=== PATIENT | male | born 1940 | race Caucasian/White ===

== ENCOUNTER → 2017-04-05 10:55 | Outpatient (CLI) | payer MEDICARE, OTHER ==
[2015-04-26 15:03] VITALS: BMI 21.8
[~2017-04-05 10:55] MED LIST: BAYER CHEWABLE81 MG PO; COREG6.25 MG PO; DIFLUCAN SUS40 MG/ML PO; DYAZIDE 37.5/251 CAP PO; ELIQUIS5 MG PO; HYDROCODONE-APA1 TAB PO; LISINOPRIL2.5 MG PO; MACROBID100 MG PO; OMNICEF300 MG PO; PACERONE200 MG PO; PREDNISONE20 MG PO; PROVENTIL HFA6.7 GM INH; TENORMIN25 MG PO; VIBRAMYCIN 100100 MG PO; WELLBUTRIN XL150 M1 PO; XANAX0.25 MG PO
== END | disposition home or self-care (01) ==
LOC: D.CT 10:55
DX: R05 Cough (principal)

== ENCOUNTER → 2017-04-19 08:16 | Outpatient (CLI) | payer MEDICARE, OTHER ==
[2015-04-26 15:03] VITALS: BMI 21.8
== END | disposition home or self-care (01) ==
LOC: D.CT 08:16
DX: I71.9 Aortic aneurysm of unspecified site, without rupture (principal)

== ENCOUNTER 2017-05-20 18:17 | Outpatient (CLI) | payer MEDICARE, OTHER ==
[~2017-05-20] VITALS: Ht 177.8 cm; Wt 64.1 kg
[~2017-05-20 18:17] MED LIST changes: -DIFLUCAN SUS40 MG/ML PO; -DYAZIDE 37.5/251 CAP PO; -ELIQUIS5 MG PO; -HYDROCODONE-APA1 TAB PO; -MACROBID100 MG PO; -OMNICEF300 MG PO; -PACERONE200 MG PO; -PREDNISONE20 MG PO; -PROVENTIL HFA6.7 GM INH; -VIBRAMYCIN 100100 MG PO; -WELLBUTRIN XL150 M1 PO; -XANAX0.25 MG PO
[2017-05-20] MEDS ORDERED: TENORMIN25 MG PO (22:04)
[2017-05-20] MEDS ORDERED: ELIQUIS5 MG PO (22:05)
[2017-05-20] MEDS ORDERED: PACERONE200 MG PO (22:06)
[2017-05-20] MEDS ORDERED: DIFLUCAN SUS40 MG/ML PO (22:07)
[2017-05-20] MEDS ORDERED: WELLBUTRIN XL150 M1 PO (22:07)
[2017-05-20] MEDS ORDERED: OMNICEF300 MG PO (22:08)
[2017-05-20] MEDS ORDERED: HYDROCODONE-APA1 TAB PO (22:10)
[2017-05-20] MEDS ORDERED: PROVENTIL HFA6.7 GM INH (22:11)
[2017-05-20] MEDS ORDERED: DYAZIDE 37.5/251 CAP PO (22:12)
[2017-05-20] MEDS ORDERED: XANAX0.25 MG PO (22:12)
[2017-05-26] MEDS ORDERED: VIBRAMYCIN 100100 MG PO (06:42)
[2017-05-26] MEDS ORDERED: PREDNISONE20 MG PO (06:42)
[2017-06-06 08:55] LABS: HEMATOCRIT 35.3 % (42.0-54.0); HEMOGLOBIN 11.5 g/dL (13.5-17.5); LYMPHOCYTES 12.9 % (15-50); MCH 30.3 pg (26.0-34.0); MCHC 32.6 g/dL (31.0-37.0); MCV 93.1 fL (80.0-100.0); NEUTROPHILS 76.5 % (40-80); RBC 3.79 10x6/uL (4.20-6.10); RDW 15.5 % (11.5-14.5); WBC 11.4 10x3/uL (4.8-10.8)
[2017-06-06] MEDS ORDERED: MACROBID100 MG PO (08:55)
[2017-06-06 08:56] LABS: ANION GAP 13.1 mmol/L (8-16); CALCIUM 9.1 mg/dL (8.5-10.1); CARBON DIOXIDE 25.1 mmol/L (21.0-32.0); CREATININE - SERUM 1.4 mg/dL (0.6-1.3); POTASSIUM - SERUM 4.2 mmol/L (3.5-5.1)
[2017-06-06 09:01] LABS: PLATELET COUNT 433 10x3/uL (130-400)
[2017-06-06 09:10] VITALS: BP 117/57; Ht 177.8 cm; Wt 64.1 kg
[2017-06-06 09:39] LABS: APTT 28.1 SECONDS (22.8-39.4); INR 1.03 (0.85-1.17); PROTIME 12.9 SECONDS (11.6-15.0)
[2017-06-06 14:01] LABS: EOS BF 1 %; MACROPHAGES BF 45 %; MESOTHELIALS BF 2 %; NEUT - BF 14 %
== END 2017-06-06 14:38 | disposition home or self-care (01) ==
LOC: D.SP 06-01 11:00 → D.CT 06-01 11:00 → D.SP 06-03 09:00 → D.CT 06-03 09:00 → D.SP 06-06 08:19
PROVIDERS: Specialist
DX: J90 Pleural effusion, not elsewhere classified (principal); R53.1 Weakness; I50.9 Heart failure, unspecified; I95.9 Hypotension, unspecified; D47.3 Essential (hemorrhagic) thrombocythemia; Z01.812 Encounter for preprocedural laboratory examination

== ENCOUNTER 2017-05-20 18:17 | Inpatient (IN) | payer MEDICARE, OTHER ==
[~2017-05-20] VITALS: Ht 177.8 cm; Wt 68.9 kg
--- NOTE | ~2017-05-20 | HP ---
PATIENT: CRISTIAN CORONA MEDICAL RECORD: [id number] ACCOUNT: [id number] LOCATION:D.[id number] : 40 ADMISSION DATE: 05/20/17 HISTORY AND PHYSICAL EXAMINATION HISTORY: A 77-year-old male brought in by EMS for generalized weakness, shortness of breath. Had aortic aneurysm repair in [facility] in [place] on 05/04/2017. Discharged on the , subsequent readmission for pleural effusion and pneumonia, presents here with shortness of breath, hypotensive. PAST MEDICAL HISTORY: Significant for CHF, arrhythmia, chest pain, aortic aneurysm status post repair. ALLERGIES: PENICILLIN. CURRENT MEDICATIONS: Cefdinir as an outpatient; Diflucan as an outpatient; albuterol inhaler; Eliquis; amiodarone; atenolol; Xanax p.r.n. anxiety; aspirin 81 mg daily; hydrocodone p.r.n.; triamterene and hydrochlorothiazide daily; acidophilus. REVIEW OF SYSTEMS: GENERAL: Decreased appetite. No known changes in weight. HEENT: No cephalgia, visual changes, tinnitus, epistaxis, or dysphagia. CARDIOVASCULAR: Extensive history as above. Denies chest pain other than musculoskeletal from his aortic repair. PULMONARY: Denies hemoptysis. Denies night sweats. GASTROINTESTINAL: Denies hematemesis, hematochezia, or melena. GENITOURINARY: Denies dysuria. MUSCULOSKELETAL: No acute changes. ENDOCRINE: Denies polyuria, polydipsia, or polyphagia. PHYSICAL EXAMINATION: VITAL SIGNS: Temperature 97.3, blood pressure is 97/54, heart rate 76, respirations 18, O2 sat is 94% on room air. GENERAL: Alert and oriented. Generalized weakness. HEENT: Normocephalic and atraumatic. Eyes; pupils are equally round and reactive. Ears; canals patent. TMs are intact. Nose; nares are patent without drainage. Throat; no erythema and no exudates. NECK: Supple. No lymphadenopathy. HEART: Regular rate and rhythm. No S3 or S4. No rub. LUNGS: Diminished breath sounds at the bases. Breathing is nonlabored. ABDOMEN: Soft and nontender. Bowel sounds in all 4 quadrants. EXTREMITIES: Present times 4. No edema. NEUROLOGIC: Intact. SKIN: Warm and dry. No rash. LABORATORY AND DIAGNOSTIC DATA: Urinalysis; yellow, clear, specific gravity 1.02, trace leukocyte esterase, few bacteria. CBC; white count 19.8, hemoglobin 10.2, hematocrit 31.5, and platelets 845. D-dimer is 5.08. Sodium is 135, potassium is 4.7, chloride 100, bicarb 21, BUN 33, creatinine 2.1, glucose 116, lactic acid 1.8, magnesium 2.3. AST is 16, ALT 30. CK is 22, troponin is 0.033, ProBNP 2874, serum protein 7.2, lipase 117. Chest x-ray is stable, cardiomegaly, small left pleural effusion with subjacent atelectasis, basilar airspace opacities concerning for pneumonia. EKG; sinus rhythm, rate of 66, HISTORY AND PHYSICAL [id number] CRISTIAN CORONA nonspecific T-wave abnormality. ASSESSMENT AND PLAN: Status post aortic aneurysm repair, pleural effusion, generalized weakness, hypotension, congestive heart failure, reactionary thrombocytosis, pneumonia. Antibiotics started in the emergency room. Low volume IV fluids as a pressure support. Accurate I's and O's, daily weights. Nutrition evaluation. Pulmonology evaluation. CT results are pending. Blood cultures are pending. Likely chronic obstructive pulmonary disease, DuoNebs, supportive care. TRANSINT:[id number] Voice Confirmation ID: [id number] DOCUMENT ID: [id number] CRISTIAN VILLAFUERTE DO at 1650 CC: [id number] DICTATION DATE: 05/21/17 1134 ARBORICULTURE TEACHER: 05/21/17 1351 ADM IN [facility] [address] [place] [address]
--- NOTE | ~2017-05-20 | EC ---
PATIENT:CRISTIAN CORONA DATE OF SERVICE: 05/20/17 SEX: M MEDICAL RECORD: [id number] DATE OF : 40 LOCATION:D[facility] AGE OF PATIENT: 77 ADMISSION DATE: 05/20/17 REFERRING PHYSICIAN: INTERPRETING PHYSICIAN: TYESHA MARTINEZ MD ECHOCARDIOGRAM REPORT ECHO CHARGES 4 ECHO COMPLETE CLINICAL DIAGNOSIS: EFFUSIONS RECENT AORTIC ANEURSYM REPAIR ECHOCARDIOGRAPHIC MEASUREMENTS (adult normal given) AC root (d.<3.7cm) 4.6 cm LV Septum d (<1.2 cm> 1.7 cm Valve Excursion 2.4 cm LV Septum (systole) 2.0 cm Left Atria (s.<4.0cm> 3.5 cm LVPW d(<1.2cm) 1.7 cm RV (d.<2.3cm) 3.4 cm LVPW (sytole) 2.0 cm LV diastole(<5.6CM) 3.3 cm MV E-F(>70mm/sec) cm LV systole 2.2 cm LVOT Diameter 1.9 cm MV exc.(>10mm) 2.0 cm Est.ejection fraction (50-75%) % Pericardial Effusion Y DOPPLER: LVIT cm/sec A 51.0 cm/sec E 92.0 cm/sec LA cm/sec RVSP 33 mmHg LVOT 97 cm/sec AOP1/2T 445 m/s Asc. Ao 140 cm/sec RVOT 67 cm/sec RA cm/sec PA 105 cm/sec AV Gradient Peak 7.80 mmHg AV Mean 3.88 mmHg AV Area 1.7 cm MV Gradient Peak 3.55 mmHg MV Mean 1.65 mmHg MV Area cm COMMENTS: Molder Helper: Any BOLDEN Sports Commentator: 3 Dr. Prater TAPE# PACS DATE OF SERVICE: 05/22/2017 Adequate 2D echo, color flow and spectral Doppler, and M-mode. LVH is present. LV internal dimensions are normal. Wall motion is normal. EF is greater than 55%. Aortic valve sclerosis without stenosis by Doppler interrogation. The left atrium is normal at 3.5 cm. Mitral valve shows no prolapse. Trace MR. Right-sided chambers appear normal. Mild TR. TRANSINT:[id number] Voice Confirmation ID: [id number] DOCUMENT ID: [id number] ECHOCARDIOGRAM REPORT [id number] MCLAIN 05/25/2017 Edited to correct date of service, dmm. TYESHA MARTINEZ MD at 1337 CC: [id number] DICTATION DATE: 05/23/17928 ACCOUNT UNDERWRITER: 05/23/17 1128 DIS IN 05/26/17 [place] [id number] [place] [id number]
[2017-05-20 19:29] LABS: BASOPHILS 0.2 % (0-2); HEMATOCRIT 31.5 % (42.0-54.0); HEMOGLOBIN 10.2 g/dL (13.5-17.5); IMMATURE GRANULOCYTES 1.4 % (0-5); LYMPHOCYTES 9.2 % (15-50); MCH 30.7 pg (26.0-34.0); MCHC 32.4 g/dL (31.0-37.0); MCV 94.9 fL (80.0-100.0); MEAN PLATELET VOLUME 8.8 fL (7.4-10.4); NEUTROPHILS 81.2 % (40-80); PLATELET COUNT 845 10x3/uL (130-400); RBC 3.32 10x6/uL (4.20-6.10); RDW 13.4 % (11.5-14.5); WBC 19.8 10x3/uL (4.8-10.8)
[2017-05-20 19:47] LABS: ANION GAP 18.7 mmol/L (8-16); BILIRUBIN - TOTAL 0.25 mg/dL (0.2-1.3); CALCIUM 9.7 mg/dL (8.5-10.1); CREATININE - SERUM 2.1 mg/dL (0.6-1.3); MAGNESIUM - SERUM 2.3 mg/dL (1.8-2.4); POTASSIUM - SERUM 4.7 mmol/L (3.5-5.1); PROTEIN - SERUM 7.2 g/dL (6.4-8.2); TROPONIN-I 0.033 ng/mL (0.000-0.060)
[2017-05-20 21:01] LABS: APPEARANCE CLEAR (CLEAR); BILIRUBIN NEGATIVE (NEGATIVE); COLOR YELLOW (YELLOW); GLUCOSE NEGATIVE (NEGATIVE); KETONE NEGATIVE (NEGATIVE); NITRITE NEGATIVE (NEGATIVE); PROTEIN NEGATIVE (NEGATIVE); UROBILINOGEN NORMAL (NORMAL)
[2017-05-20 21:02] LABS: BACTERIA FEW /hpf (NONE SEEN); RED CELLS - URINE 0-5 /hpf (0-5); WHITE CELLS - URINE 0-5 /hpf (0-5)
[2017-05-20] MEDS ORDERED: TENORMIN25 MG PO (22:04)
[2017-05-20] MEDS ORDERED: ELIQUIS5 MG PO (22:05)
[2017-05-20] MEDS ORDERED: PACERONE200 MG PO (22:06)
[2017-05-20] MEDS ORDERED: WELLBUTRIN XL150 M1 PO (22:07)
[2017-05-20] MEDS ORDERED: DIFLUCAN SUS40 MG/ML PO (22:07)
[2017-05-20] MEDS ORDERED: OMNICEF300 MG PO (22:08)
[2017-05-20] MEDS ORDERED: HYDROCODONE-APA1 TAB PO (22:10)
[2017-05-20] MEDS ORDERED: PROVENTIL HFA6.7 GM INH (22:11)
[2017-05-20] MEDS ORDERED: DYAZIDE 37.5/251 CAP PO (22:12)
[2017-05-20] MEDS ORDERED: XANAX0.25 MG PO (22:12)
[2017-05-21] VITALS (13 sets, daily range): BP systolic 88–115; BP diastolic 47–60; Ht 177.8 cm; Wt 68.9 kg
[2017-05-21 17:14] LABS: CREATININE - BODY FLUID 2.41 mg/dL
[2017-05-21 17:20] LABS: PROTEIN - BODY FLUID 3.8 G/DL
[2017-05-21 17:49] LABS: EOS BF 4 %; MACROPHAGES BF 7 %; NEUT - BF 71 %
[2017-05-22] VITALS: BP 105/60
[2017-05-22 04:00] VITALS: BP 99/52
[2017-05-22 06:00] LABS: BASOPHILS 0.2 % (0-2); HEMATOCRIT 28.3 % (42.0-54.0); HEMOGLOBIN 9.4 g/dL (13.5-17.5); IMMATURE GRANULOCYTES 0.8 % (0-5); LYMPHOCYTES 4.8 % (15-50); MCH 31.1 pg (26.0-34.0); MCHC 33.2 g/dL (31.0-37.0); MCV 93.7 fL (80.0-100.0); MEAN PLATELET VOLUME 8.6 fL (7.4-10.4); MONOCYTES 7.9 % (2-11); NEUTROPHILS 85.3 % (40-80); PLATELET COUNT 715 10x3/uL (130-400); RBC 3.02 10x6/uL (4.20-6.10); RDW 13.5 % (11.5-14.5); WBC 19.9 10x3/uL (4.8-10.8)
[2017-05-22 06:17] LABS: ALBUMIN 2.5 g/dL (3.4-5.0); ANION GAP 20.6 mmol/L (8-16); BILIRUBIN - TOTAL 0.29 mg/dL (0.2-1.3); CALCIUM 9.1 mg/dL (8.5-10.1); CARBON DIOXIDE 18.9 mmol/L (21.0-32.0); CREATININE - SERUM 2.5 mg/dL (0.6-1.3); POTASSIUM - SERUM 4.5 mmol/L (3.5-5.1); PROTEIN - SERUM 6.3 g/dL (6.4-8.2)
[2017-05-22 07:05] LABS: ERYTHROCYTE SEDIMENTATION RATE 68 mm/hr (0-20)
[2017-05-22 08:47] VITALS: BP 96/47
[2017-05-22 16:30] VITALS: BP 95/50
[2017-05-22 18:42] VITALS: BP 112/58
[2017-05-22 20:00] VITALS: BP 95/53
[2017-05-23] VITALS: BP 103/72
[2017-05-23 08:21] VITALS: BP 84/48
[2017-05-23 15:52] VITALS: BP 92/54
[2017-05-23 19:00] VITALS: BP 97/52
[2017-05-23 21:00] VITALS: BP 97/52
[2017-05-24] VITALS: BP 102/52
[2017-05-24 04:00] VITALS: BP 97/63
[2017-05-24 05:07] LABS: BASOPHILS 0.2 % (0-2); EOSINOPHILS 4.1 % (0-7); HEMATOCRIT 26.4 % (42.0-54.0); HEMOGLOBIN 8.6 g/dL (13.5-17.5); IMMATURE GRANULOCYTES 0.5 % (0-5); LYMPHOCYTES 7.7 % (15-50); MCH 30.7 pg (26.0-34.0); MCHC 32.6 g/dL (31.0-37.0); MCV 94.3 fL (80.0-100.0); MEAN PLATELET VOLUME 8.7 fL (7.4-10.4); MONOCYTES 8.2 % (2-11); NEUTROPHILS 79.3 % (40-80); PLATELET COUNT 596 10x3/uL (130-400); RDW 13.7 % (11.5-14.5)
[2017-05-24 05:13] LABS: WBC 12.6 10x3/uL (4.8-10.8)
[2017-05-24 05:23] LABS: ALBUMIN 2.2 g/dL (3.4-5.0); BILIRUBIN - TOTAL 0.23 mg/dL (0.2-1.3); CALCIUM 8.9 mg/dL (8.5-10.1); CARBON DIOXIDE 22.1 mmol/L (21.0-32.0); MAGNESIUM - SERUM 2.1 mg/dL (1.8-2.4); PHOSPHOROUS 3.5 mg/dL (2.5-4.9); POTASSIUM - SERUM 4.1 mmol/L (3.5-5.1); PROTEIN - SERUM 5.8 g/dL (6.4-8.2)
[2017-05-24 05:25] LABS: CREATININE - SERUM 1.5 mg/dL (0.6-1.3)
[2017-05-24 08:45] VITALS: BP 117/59
[2017-05-24 10:19] LABS: ANA REFLEX - DIRECT Negative (Negative); IMMUNOGLOBULIN E 50 IU/mL (0-100)
[2017-05-24 12:16] VITALS: BP 101/53
[2017-05-24 16:19] VITALS: BP 104/55
[2017-05-24 18:09] LABS: ACID FAST SMEAR Negative (()); AFB SPECIMEN PROCESSING Not Indicated (())
[2017-05-25 02:00] VITALS: BP 99/65
[2017-05-25 04:00] VITALS: BP 111/63
[2017-05-25 05:45] LABS: BASOPHILS 0.2 % (0-2); EOSINOPHILS 3.7 % (0-7); HEMOGLOBIN 9.4 g/dL (13.5-17.5); IMMATURE GRANULOCYTES 0.5 % (0-5); LYMPHOCYTES 10.9 % (15-50); MCH 30.4 pg (26.0-34.0); MCHC 32.4 g/dL (31.0-37.0); MCV 93.9 fL (80.0-100.0); MEAN PLATELET VOLUME 8.5 fL (7.4-10.4); MONOCYTES 7.1 % (2-11); NEUTROPHILS 77.6 % (40-80); PLATELET COUNT 647 10x3/uL (130-400); RBC 3.09 10x6/uL (4.20-6.10); RDW 13.6 % (11.5-14.5); WBC 12.5 10x3/uL (4.8-10.8)
[2017-05-25 06:34] LABS: ALBUMIN 2.5 g/dL (3.4-5.0); ANION GAP 14.1 mmol/L (8-16); BILIRUBIN - TOTAL 0.33 mg/dL (0.2-1.3); CALCIUM 9.3 mg/dL (8.5-10.1); CARBON DIOXIDE 21.8 mmol/L (21.0-32.0); CREATININE - SERUM 1.3 mg/dL (0.6-1.3); POTASSIUM - SERUM 3.9 mmol/L (3.5-5.1); PROTEIN - SERUM 6.4 g/dL (6.4-8.2)
[2017-05-25 10:17] LABS: FUNGUS STAIN Final report (())
[2017-05-25 10:57] VITALS: BP 98/58
[2017-05-25 17:18] VITALS: BP 110/65
[2017-05-25 20:00] VITALS: BP 115/67
[2017-05-26] VITALS: BP 120/62
[2017-05-26 05:00] VITALS: BP 115/65
[2017-05-26 05:11] LABS: BASOPHILS 0.1 % (0-2); EOSINOPHILS 0.1 % (0-7); HEMATOCRIT 28.6 % (42.0-54.0); HEMOGLOBIN 9.4 g/dL (13.5-17.5); IMMATURE GRANULOCYTES 0.3 % (0-5); LYMPHOCYTES 5.5 % (15-50); MCH 30.8 pg (26.0-34.0); MCHC 32.9 g/dL (31.0-37.0); MCV 93.8 fL (80.0-100.0); MEAN PLATELET VOLUME 8.5 fL (7.4-10.4); MONOCYTES 2.1 % (2-11); NEUTROPHILS 91.9 % (40-80); PLATELET COUNT 626 10x3/uL (130-400); RBC 3.05 10x6/uL (4.20-6.10); RDW 13.6 % (11.5-14.5); WBC 11.7 10x3/uL (4.8-10.8)
[2017-05-26 05:21] LABS: ANION GAP 17.4 mmol/L (8-16); CALCIUM 9.4 mg/dL (8.5-10.1); CARBON DIOXIDE 20.8 mmol/L (21.0-32.0); CREATININE - SERUM 1.3 mg/dL (0.6-1.3); POTASSIUM - SERUM 4.2 mmol/L (3.5-5.1)
[2017-05-26] MEDS ORDERED: PREDNISONE20 MG PO (06:42)
[2017-05-26] MEDS ORDERED: VIBRAMYCIN 100100 MG PO (06:42)
[2017-06-20 07:10] LABS: FUNGUS MYCOLOGY CULTURE Final report (())
== END 2017-05-26 09:59 | disposition home health service (06) | DRG 186 ==
LOC: D.ER 18:17 → D.MS 20:40
PROVIDERS: Emergency Medicine; Family Medicine; Internal Medicine Pulmonary Disease; Specialist
PROC: 0W9B3ZZ Drainage of Left Pleural Cavity, Percutaneous Approach (ICD-10-PCS; principal; 2017-05-21 13:55)
DX: J90 Pleural effusion, not elsewhere classified (principal); J18.9 Pneumonia, unspecified organism; J98.11 Atelectasis; N17.9 Acute kidney failure, unspecified; D47.3 Essential (hemorrhagic) thrombocythemia; N18.9 Chronic kidney disease, unspecified; I95.9 Hypotension, unspecified; J44.9 Chronic obstructive pulmonary disease, unspecified; I48.91 Unspecified atrial fibrillation; F17.200 Nicotine dependence, unspecified, uncomplicated; J30.9 Allergic rhinitis, unspecified

== ENCOUNTER → 2017-06-17 10:55 | Outpatient (CLI) | payer MEDICARE, OTHER ==
[2017-06-06 09:10] VITALS: BMI 20.2
[~2017-06-17 10:55] MED LIST changes: +DIFLUCAN SUS40 MG/ML PO; +DYAZIDE 37.5/251 CAP PO; +ELIQUIS5 MG PO; +HYDROCODONE-APA1 TAB PO; +MACROBID100 MG PO; +OMNICEF300 MG PO; +PACERONE200 MG PO; +PREDNISONE20 MG PO; +PROVENTIL HFA6.7 GM INH; +VIBRAMYCIN 100100 MG PO; +WELLBUTRIN XL150 M1 PO; +XANAX0.25 MG PO
== END | disposition home or self-care (01) ==
LOC: D.RAD 10:55
DX: J90 Pleural effusion, not elsewhere classified (principal)

== ENCOUNTER 2017-08-25 11:54 | Observation (INO) | payer MEDICARE, OTHER ==
[~2017-08-25] VITALS: Ht 177.8 cm; Wt 69.9 kg
[2017-08-25 12:49] LABS: BASOPHILS 0.2 % (0-2); EOSINOPHILS 0.4 % (0-7); HEMATOCRIT 40.3 % (42.0-54.0); HEMOGLOBIN 13.3 g/dL (13.5-17.5); IMMATURE GRANULOCYTES 0.2 % (0-5); LYMPHOCYTES 16.6 % (15-50); MCV 87.8 fL (80.0-100.0); MONOCYTES 7.8 % (2-11); NEUTROPHILS 74.8 % (40-80); RBC 4.59 10x6/uL (4.20-6.10); RDW 16.6 % (11.5-14.5); WBC 10.7 10x3/uL (4.8-10.8)
[2017-08-25 12:57] LABS: INR 0.99 (0.85-1.17); PROTIME 12.5 SECONDS (11.6-15.0)
[2017-08-25 13:00] LABS: APTT 29.5 SECONDS (22.8-39.4)
[2017-08-25 13:23] LABS: PLATELET COUNT 327 10x3/uL (130-400)
[2017-08-25 13:30] LABS: ALBUMIN 3.7 g/dL (3.4-5.0); ANION GAP 15.4 mmol/L (8-16); BILIRUBIN - TOTAL 0.74 mg/dL (0.2-1.3); CALCIUM 9.3 mg/dL (8.5-10.1); CARBON DIOXIDE 25.2 mmol/L (21.0-32.0); CREATININE - SERUM 1.2 mg/dL (0.6-1.3); POTASSIUM - SERUM 3.6 mmol/L (3.5-5.1); PROTEIN - SERUM 7.6 g/dL (6.4-8.2)
[2017-08-25 13:34] LABS: MAGNESIUM - SERUM 2.1 mg/dL (1.8-2.4); TROPONIN-I 0.024 ng/mL (0.000-0.060)
[2017-08-25 22:13] VITALS: BP 135/61
[2017-08-25 22:44] VITALS: BP 144/73; BMI 21.7
[2017-08-26] VITALS (9 sets, daily range): BP systolic 108–133; BP diastolic 49–71; Ht 177.8 cm; Wt 69.9 kg
[2017-08-26 08:22] LABS: BASOPHILS 0.1 % (0-2); EOSINOPHILS 0.7 % (0-7); HEMATOCRIT 36.1 % (42.0-54.0); HEMOGLOBIN 11.8 g/dL (13.5-17.5); IMMATURE GRANULOCYTES 0.2 % (0-5); LYMPHOCYTES 21.5 % (15-50); MCH 28.4 pg (26.0-34.0); MCHC 32.7 g/dL (31.0-37.0); MCV 86.8 fL (80.0-100.0); MEAN PLATELET VOLUME 9.9 fL (7.4-10.4); MONOCYTES 11.4 % (2-11); NEUTROPHILS 66.1 % (40-80); PLATELET COUNT 284 10x3/uL (130-400); RBC 4.16 10x6/uL (4.20-6.10); RDW 16.4 % (11.5-14.5); WBC 8.1 10x3/uL (4.8-10.8)
[2017-08-26 08:30] LABS: ANION GAP 15.1 mmol/L (8-16); CALCIUM 8.6 mg/dL (8.5-10.1); CARBON DIOXIDE 22.8 mmol/L (21.0-32.0); CREATININE - SERUM 1.1 mg/dL (0.6-1.3); POTASSIUM - SERUM 3.9 mmol/L (3.5-5.1)
[2017-08-26 08:51] LABS: INR 1.04 (0.85-1.17); PROTIME 13.2 SECONDS (11.6-15.0)
[2017-08-26 08:55] LABS: APTT 33.5 SECONDS (22.8-39.4)
[2017-08-26 12:56] LABS: EOS BF 2 %; MACROPHAGES BF 11 %; NEUT - BF 7 %
== END 2017-08-26 15:47 | disposition home or self-care (01) ==
LOC: D.ER 11:54 → OBSVTIME 16:32 → D.EDHOLD 16:32 → D.M2 18:14
PROVIDERS: Emergency Medicine; Family Medicine; Nurse Practitioner Family; Radiology Diagnostic Radiology
DX: J90 Pleural effusion, not elsewhere classified (principal); I48.91 Unspecified atrial fibrillation; F32.9 Major depressive disorder, single episode, unspecified; Z72.0 Tobacco use

== ENCOUNTER 2018-01-10 07:45 | Day surgery (SDC) | payer MEDICARE, OTHER ==
[2018-01-09 13:33] LABS: ANION GAP 10.9 mmol/L (8-16); CALCIUM 8.9 mg/dL (8.5-10.1); CARBON DIOXIDE 27.6 mmol/L (21.0-32.0); CREATININE - SERUM 1.1 mg/dL (0.6-1.3); POTASSIUM - SERUM 4.5 mmol/L (3.5-5.1)
[2018-01-09 14:11] LABS: BASOPHILS 0.3 % (0-2); EOSINOPHILS 0.8 % (0-7); HEMATOCRIT 36.9 % (42.0-54.0); HEMOGLOBIN 12.2 g/dL (13.5-17.5); LYMPHOCYTES 33.7 % (15-50); MCH 30.6 pg (26.0-34.0); MCHC 33.1 g/dL (31.0-37.0); MCV 92.5 fL (80.0-100.0); MEAN PLATELET VOLUME 10.7 fL (7.4-10.4); NEUTROPHILS 58.2 % (40-80); PLATELET COUNT 259 10x3/uL (130-400); RBC 3.99 10x6/uL (4.20-6.10); RDW 14.8 % (11.5-14.5); WBC 7.2 10x3/uL (4.8-10.8)
[~2018-01-10] VITALS: Ht 177.8 cm; Wt 70.3 kg
--- NOTE | ~2018-01-10 | OP ---
PATIENT NAME: CRISTIAN CORONA MEDICAL RECORD: [id number] :40 LOCATION:D.[facility] ADMISSION DATE: SURGEON: DAVID REBOLLAR MD DATE OF OPERATION: 01/10/2018 PREOPERATIVE DIAGNOSES: 1. Umbilical hernia. 2. Right inguinal hernia. 3. Congestive heart failure, undifferentiated. 4. Gastroesophageal reflux disease. POSTOPERATIVE DIAGNOSES: 1. Umbilical hernia. 2. Right inguinal hernia. 3. Congestive heart failure, undifferentiated. 4. Gastroesophageal reflux disease. PROCEDURES: 1. Right inguinal hernia repair with medium PHS mesh. 2. Umbilical hernia repair without mesh. SURGEON: David Rebollar MD PLUMBER PIPE FITTING: Kely Guillermo APRN REPORT OF PROCEDURE: The patient's abdomen was prepped and draped in sterile fashion. An oblique incision was made above the inguinal ligament on the right abdomen. Electrocautery was used to dissect through subcutaneous tissue to the external oblique fascia. This fascia was opened up using electrocautery to the external ring. At this point, the spermatic cord was elevated and a Eaton was placed around it. The patient was noted to have an indirect hernia defect. This was dissected free from the spermatic cord. We then high ligated the hernia defect and pushed the remainder back into the peritoneal cavity. Opening was made in the base of the inguinal floor and the preperitoneal space of Retzius was opened up. A medium PHS mesh was inserted and sutured down on all sides using multiple interrupted 0 Vicryls. The wound was then irrigated out with normal saline. The ilioinguinal nerve was found and high ligated. The external oblique fascia was then closed with a running 2-0 Vicryl, Sindy's was closed with interrupted 3-0 Vicryl and the skin was closed with running subcutaneous 5-0 Monocryl. We then approached the umbilical hernia and a semicircular incision was made on the inferior aspect of the umbilicus. Electrocautery was used to dissect through the subcutaneous tissues and through the hernia projecting up to the base of the umbilicus. The umbilical hernia had fatty tissue within it, which was easily reducible. The hernia defect was about 1 cm x 0.5 cm. The fascia was freed up on all sides. We closed the fascial defect transversely using interrupted 0-Prolene times 3. The umbilicus was then tacked down using an interrupted 3-0 Vicryl. The subcutaneous tissues were reapproximated with interrupted 3-0 Vicryl and the skin was closed with running subcutaneous 5-0 Monocryl. A total of 10 mL of 0.25% Marcaine with epinephrine was infused into the OPERATIVE REPORT [id number] CRISTIAN CORONA surrounding tissues and the wound was dressed appropriately. COMPLICATIONS: None. CONDITION: Stable. ANESTHESIA: General endotracheal and local. BLOOD LOSS: Minimal. TRANSINT:[id number] Voice Confirmation ID: [id number] DOCUMENT ID: [id number] DAVID REBOLLAR MD at 1041 CC: DALI KYLE DO [id number] DICTATION DATE: 01/10/18 1144 FIELD CROPS HARVEST MACHINE OPERATOR: 01/10/18 1240 [facility] 01/10/18 [place] [id number] [place] [address]
[2018-01-10 08:19] VITALS: BP 118/58; Ht 177.8 cm; Wt 70.3 kg
[2018-01-10] MEDS ORDERED: HYDROCODONE-APA1 TAB PO (11:38)
== END 2018-01-10 13:45 | disposition home or self-care (01) ==
LOC: D.OPS 07:45 → D.PAN 11:45 → D.OPS 13:45
PROVIDERS: Surgery
DX: K42.9 Umbilical hernia without obstruction or gangrene (principal); K40.90 Unilateral inguinal hernia, without obstruction or gangrene, not specified as recurrent; I50.9 Heart failure, unspecified; K21.9 Gastro-esophageal reflux disease without esophagitis; Z01.812 Encounter for preprocedural laboratory examination